=== PATIENT | female | born 1990 | race Caucasian/White ===

== ENCOUNTER 2021-01-17 01:18 | Emergency (ER) | payer OTHER ==
[~2021-01-17] VITALS: Ht 162.6 cm; Wt 61.2 kg
[2021-01-17 01:26] VITALS: BP 104/54
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
--- NOTE | 2021-01-17 02:31 | NUR ---
Patient discharged to home in stable condition. Written and verbal after care instructions given. Patient verbalizes understanding of instruction.
== END 2021-01-17 02:33 | disposition home or self-care (01) ==
LOC: ER 01:21
DX: S01.81XA Laceration without foreign body of other part of head, initial encounter (principal); R51.9 Headache, unspecified; Y04.8XXA Assault by other bodily force, initial encounter; Y93.89 Activity, other specified; Y92.89 Other specified places as the place of occurrence of the external cause; Y99.8 Other external cause status
CPT/HCPCS: 70450; 99284; A6403